=== PATIENT | female | born 1980 | race Caucasian/White ===

== ENCOUNTER 2017-06-22 03:02 | Emergency (ER) | payer SELFPAY ==
[~2017-06-22] VITALS: Ht 172.7 cm; Wt 63.5 kg
[~2017-06-22 03:02] MED LIST: ANTIVERT25 MG PO; AZITHROMYCIN250 MG PO; BACTRIM DS 8001 TA1 PO; FEOSOL45 MG PO; IMITREX50 MG PO; KEFLEX500 MG PO; MEDROL DOSEPAK4 MG PO; MIRALAX POWDER17 G1 PO; PREDNICOT20 MG PO; PREVACID SOLUTA30 MG PO; VALTREX1 GM PO; VALTREX500 MG PO; ZOFRAN ODT4 MG SL; Zofran4 MG PO
[2017-06-22 03:48] LABS: BILIRUBIN NEGATIVE (NEGATIVE); BLOOD TRACE-INTACT (NEGATIVE); CLARITY CLEAR (CLEAR); COLOR YELLOW (YELLOW); GLUCOSE NEGATIVE (NEGATIVE); KETONE TRACE (NEGATIVE); LEUKO ESTERASE 1+ (NEGATIVE); NITRITE NEGATIVE (NEGATIVE); PH 6.5 (5.0-9.0); SPECIFIC GRAVITY <= 1.005 (1.005-1.030); UROBILINOGEN 0.2 E.U./dl (0.2-1.0)
[2017-06-22 03:52] LABS: BASO # 0.1 10*3/uL (0.0-0.1); BASO % 0.9 % (0.0-1.0); EOS # 0.2 10*3/uL (0.0-0.4); EOS % 3.3 % (1.0-4.0); HEMATOCRIT 33.3 % (37.0-47.0); HEMOGLOBIN 11.6 g/dl (12.0-16.0); LYMPH # 2.5 10*3/uL (1.3-4.4); LYMPH % 39.9 % (27.0-41.0); MEAN CORPUSCULAR HGB 33.4 pg (27.0-31.0); MEAN CORPUSCULAR HGB CONC 34.8 g/dl (33.0-37.0); MEAN PLATELET VOLUME 10.2 fl (9.6-12.3); MONO # 0.6 10*3/uL (0.1-1.0); MONO % 8.8 % (3.0-9.0); NEUT % 46.8 % (47.0-73.0); PLATELET COUNT AUTOMATED 210 10*3/uL (130-400); RED BLOOD COUNT 3.47 10*6/uL (4.10-5.10); RED CELL DISTRI WIDTH 12.2 % (0-14.5); WHITE BLOOD COUNT 6.4 10*3/uL (4.8-10.8)
[2017-06-22 03:55] LABS: BACTERIA 2+
[2017-06-22 04:09] LABS: ALKALINE PHOSPHATASE 41 U/L (45-117); BUN 14 mg/dl (7-24); CHLORIDE 106 mmol/L (98-107); CREATININE 0.77 mg/dL (0.55-1.02); LIPASE 104 U/L (73-393); POTASSIUM 3.4 mmol/L (3.5-5.1); SGOT/AST 10 IU/L (3-35); SGPT/ALT 19 U/L (12-78); SODIUM 140 mmol/L (136-145)
[2017-06-22 04:23] LABS: BETA-HCG, QUANT < 1.0 mIU/mL (1-3)
[2017-06-22 05:22] VITALS: BP 123/75
[2017-06-22] MEDS ORDERED: ZOFRAN ODT4 MG SL (06:21)
[2017-06-22] MEDS ORDERED: NORCO 5-325 TA1 EACH PO (06:22)
== END 2017-06-22 06:45 | disposition home or self-care (01) ==
LOC: ED 03:02
PROVIDERS: Emergency Medicine Emergency Medical Services
DX: N83.201 Unspecified ovarian cyst, right side (principal); R10.2 Pelvic and perineal pain; Z79.899 Other long term (current) drug therapy; Z91.041 Radiographic dye allergy status

== ENCOUNTER → 2017-10-16 | Outpatient (CLI) | payer OTHER ==
[~2017-10-16] MED LIST changes: +NORCO 5-325 TA1 EACH PO
[2017-10-16 18:16] LABS: HEMATOCRIT 37.9 % (37.0-47.0); HEMOGLOBIN 12.6 g/dl (12.0-16.0); MEAN CELL VOLUME 99.2 fl (81.0-99.0); MEAN CORPUSCULAR HGB CONC 33.2 g/dl (33.0-37.0); MEAN PLATELET VOLUME 10.4 fl (9.6-12.3); RED BLOOD COUNT 3.82 10*6/uL (4.10-5.10); RED CELL DISTRI WIDTH 12.6 % (0-14.5); WHITE BLOOD COUNT 7.7 10*3/uL (4.8-10.8)
[2017-10-16 18:32] LABS: ALBUMIN 4.7 gm/dl (3.1-4.5); ALKALINE PHOSPHATASE 33 U/L (45-117); BUN 16 mg/dl (7-24); CHLORIDE 105 mmol/L (98-107); CHOLESTEROL 224 mg/dL (<200); CREATININE 0.73 mg/dL (0.55-1.02); HDL CHOLESTEROL 70 mg/dl (40-60); LDL CHOLESTEROL 143 mg/dL (9-159); POTASSIUM 4.1 mmol/L (3.5-5.1); SGOT/AST 21 IU/L (3-35); SGPT/ALT 22 U/L (12-78); SODIUM 139 mmol/L (136-145); TOTAL PROTEIN 7.9 gm/dL (6.4-8.2); TRIGLYCERIDES 57 mg/dl (<150); VLDL CHOLESTEROL 11 mg/dL (6-40)
[2017-10-17 08:11] LABS: RHEUMATOID ARTHRITIS FACTOR <10.0 IU/mL (0.0-13.9)
== END | disposition home or self-care (01) ==
LOC: LAB 17:53
PROVIDERS: Family Medicine
DX: Z13.220 Encounter for screening for lipoid disorders (principal); M25.50 Pain in unspecified joint; M79.1 Myalgia; R51 Headache; E55.9 Vitamin D deficiency, unspecified; L23.7 Allergic contact dermatitis due to plants, except food

== ENCOUNTER → 2017-11-01 | Outpatient (CLI) | payer OTHER | END | disposition home or self-care (01) | LOC: LAB 16:41 | DX: E74.9 Disorder of carbohydrate metabolism, unspecified (principal) ==

== ENCOUNTER → 2017-11-21 | Outpatient (CLI) | payer OTHER | END | disposition home or self-care (01) | LOC: MAMMO 09:00 | DX: N63.20 Unspecified lump in the left breast, unspecified quadrant (principal) ==

== ENCOUNTER → 2018-06-04 | Outpatient (CLI) | payer OTHER | END | disposition home or self-care (01) | LOC: RAD 14:29 | DX: M54.2 Cervicalgia (principal) ==

== ENCOUNTER → 2018-06-24 | Outpatient (CLI) | payer OTHER | END | disposition home or self-care (01) | LOC: MRI 09:00 | DX: M25.78 Osteophyte, vertebrae (principal); M50.20 Other cervical disc displacement, unspecified cervical region; M11.28 Other chondrocalcinosis, vertebrae; R20.0 Anesthesia of skin; R20.2 Paresthesia of skin; R53.1 Weakness ==

== ENCOUNTER → 2018-07-02 | Outpatient (CLI) | payer OTHER | END | disposition home or self-care (01) | LOC: US 17:00 | DX: N83.202 Unspecified ovarian cyst, left side (principal) ==

== ENCOUNTER → 2018-08-05 | Outpatient (CLI) | payer OTHER | END | disposition home or self-care (01) | LOC: US 07-29 11:00 | DX: N83.202 Unspecified ovarian cyst, left side (principal) ==

== ENCOUNTER → 2018-11-19 | Outpatient (CLI) | payer OTHER ==
[2018-11-19 18:49] LABS: HEMOGLOBIN 12.1 g/dl (12.0-16.0); MEAN CELL VOLUME 98.6 fl (81.0-99.0); MEAN CORPUSCULAR HGB 34.1 pg (27.0-31.0); MEAN CORPUSCULAR HGB CONC 34.6 g/dl (33.0-37.0); MEAN PLATELET VOLUME 10.3 fl (9.6-12.3); RED BLOOD COUNT 3.55 10*6/uL (4.10-5.10); RED CELL DISTRI WIDTH 11.6 % (0-14.5); WHITE BLOOD COUNT 8.8 10*3/uL (4.8-10.8)
[2018-11-19 19:30] LABS: ALBUMIN 3.7 gm/dl (3.1-4.5); ALKALINE PHOSPHATASE 47 U/L (45-117); BUN 12 mg/dl (7-24); CHLORIDE 109 mmol/L (98-107); CREATININE 0.93 mg/dL (0.55-1.02); POTASSIUM 3.4 mmol/L (3.5-5.1); SGOT/AST 9 IU/L (3-35); SGPT/ALT 17 U/L (12-78); SODIUM 142 mmol/L (136-145); TOTAL PROTEIN 6.9 gm/dL (6.4-8.2)
[2018-11-19 19:39] LABS: VITAMIN D, 25-HYDROXY 33.5 ng/mL (30-100)
== END | disposition home or self-care (01) ==
LOC: LAB 18:13
PROVIDERS: Family Medicine
DX: M25.531 Pain in right wrist (principal); M77.8 Other enthesopathies, not elsewhere classified; F41.1 Generalized anxiety disorder; E74.00 Glycogen storage disease, unspecified; R53.83 Other fatigue

== ENCOUNTER → 2018-12-25 | Outpatient (CLI) | payer OTHER | END | disposition home or self-care (01) | LOC: LAB 15:01 | PROVIDERS: Family Medicine | DX: M25.50 Pain in unspecified joint (principal) ==

== ENCOUNTER → 2019-03-20 | Outpatient (CLI) | payer OTHER | END | disposition home or self-care (01) | LOC: LAB 12:46 | PROVIDERS: Family Medicine | DX: M25.50 Pain in unspecified joint (principal) ==

== ENCOUNTER → 2019-07-18 | Outpatient (CLI) | payer MEDICAID ==
[2019-07-18 14:42] LABS: HEMATOCRIT 36.5 % (37.0-47.0); HEMOGLOBIN 12.4 g/dl (12.0-16.0); MEAN CELL VOLUME 98.9 fl (81.0-99.0); MEAN CORPUSCULAR HGB 33.6 pg (27.0-31.0); MEAN PLATELET VOLUME 10.1 fl (9.6-12.3); RED BLOOD COUNT 3.69 10*6/uL (4.10-5.10); WHITE BLOOD COUNT 5.1 10*3/uL (4.8-10.8)
[2019-07-18 14:59] LABS: ALBUMIN 4.2 gm/dl (3.1-4.5); ALKALINE PHOSPHATASE 32 U/L (45-117); BUN 13 mg/dl (7-24); CHLORIDE 106 mmol/L (98-107); CHOLESTEROL 208 mg/dL (<200); CREATININE 0.86 mg/dL (0.55-1.02); HDL CHOLESTEROL 62 mg/dl (40-60); LDL CHOLESTEROL 129 mg/dL (9-159); POTASSIUM 3.9 mmol/L (3.5-5.1); SGOT/AST 8 IU/L (3-35); SGPT/ALT 18 U/L (12-78); SODIUM 136 mmol/L (136-145); TOTAL PROTEIN 7.4 gm/dL (6.4-8.2); TRIGLYCERIDES 85 mg/dl (<150); VLDL CHOLESTEROL 17 mg/dL (6-40)
[2019-07-21 04:05] LABS: ALTERNARIA ALTERNATA, IGE <0.10 kU/L (Class 0); AMERICAN ELM, IGE <0.10 kU/L (Class 0); ASPERGILLUS FUMIGATU, IGE <0.10 kU/L (Class 0); BERMUDA GRASS, IGE <0.10 kU/L (Class 0); BIRCH, COMMON SILVER IGE <0.10 kU/L (Class 0); CLADOSPORIUM HERBARU, IGE <0.10 kU/L (Class 0); CORN, IGE <0.10 kU/L (Class 0); D FARINAE MITE <0.10 kU/L (Class 0); D PTERONYSSINUS <0.10 kU/L (Class 0); DOG DANDER, IGE <0.10 kU/L (Class 0); IMMUNOGLOBULIN IgE <2 IU/mL (6-495); MAPLE LEAF SYCAMORE, IGE <0.10 kU/L (Class 0); MAPLE/BOX ELDER, IGE <0.10 kU/L (Class 0); MILK (COW), IGE <0.10 kU/L (Class 0); MOUSE URINE IGE <0.10 kU/L (Class 0); PEANUT, IGE <0.10 kU/L (Class 0); PENICILLIUM CHRYSOGENUM, IGE <0.10 kU/L (Class 0); ROUGH PIGWEED, IGE <0.10 kU/L (Class 0); SHEEP SORREL (DOCK), IGE <0.10 kU/L (Class 0); SHORT RAGWEED, IGE <0.10 kU/L (Class 0); SOYBEAN, IGE <0.10 kU/L (Class 0); TIMOTHY, IGE <0.10 kU/L (Class 0); WALNUT TREE, IGE <0.10 kU/L (Class 0); WHEAT, IGE <0.10 kU/L (Class 0); WHITE ASH, IGE <0.10 kU/L (Class 0); WHITE MULBERRY, IGE <0.10 kU/L (Class 0); WHITE OAK, IGE <0.10 kU/L (Class 0)
== END | disposition home or self-care (01) ==
LOC: LAB 14:13
PROVIDERS: Nurse Practitioner Family
DX: J31.0 Chronic rhinitis (principal); E55.9 Vitamin D deficiency, unspecified; H93.19 Tinnitus, unspecified ear; R53.83 Other fatigue; R20.0 Anesthesia of skin

== ENCOUNTER → 2019-10-01 | Outpatient (CLI) | payer OTHER | END | disposition home or self-care (01) | LOC: MRI 00:33 | DX: G35 Multiple sclerosis (principal) ==

== ENCOUNTER → 2019-10-14 | Outpatient (CLI) | payer OTHER ==
[2019-10-14 14:22] LABS: ALBUMIN 3.8 gm/dl (3.1-4.5); ALKALINE PHOSPHATASE 34 U/L (45-117); BILIRUBIN, DIRECT 0.2 mg/dL (0.0-0.2); SGOT/AST 12 IU/L (3-35); SGPT/ALT 25 U/L (12-78)
== END | disposition home or self-care (01) ==
LOC: LAB 13:27
PROVIDERS: Psychiatry & Neurology Neurology
DX: R90.82 White matter disease, unspecified (principal)

== ENCOUNTER → 2020-01-13 | Outpatient (CLI) | payer OTHER | END | disposition home or self-care (01) | LOC: US 14:17 | DX: N85.8 Other specified noninflammatory disorders of uterus (principal) ==

== ENCOUNTER → 2020-01-23 | Outpatient (CLI) | payer OTHER | END | disposition home or self-care (01) | LOC: COVID19 00:24 | PROVIDERS: ATTEND Family Medicine | DX: Z20.828 Contact with and (suspected) exposure to other viral communicable diseases (principal) ==

== ENCOUNTER → 2021-03-22 | Outpatient (CLI) | payer OTHER ==
[2021-03-22 12:05] LABS: HEMATOCRIT 38.8 % (37.0-47.0); MEAN CELL VOLUME 99.2 fl (81.0-99.0); MEAN CORPUSCULAR HGB 31.7 pg (27.0-31.0); MEAN PLATELET VOLUME 10.2 fl (9.6-12.3); RED BLOOD COUNT 3.91 10*6/uL (4.10-5.10); RED CELL DISTRI WIDTH 13.9 % (0-14.5)
[2021-03-22 12:36] LABS: ALBUMIN 3.6 gm/dl (3.1-4.5); ALKALINE PHOSPHATASE 37 U/L (45-117); BUN 10 mg/dl (7-24); CHLORIDE 109 mmol/L (98-107); CREATININE 0.69 mg/dL (0.55-1.02); POTASSIUM 4.1 mmol/L (3.5-5.1); SGOT/AST 12 IU/L (3-35); SGPT/ALT 22 U/L (12-78); SODIUM 139 mmol/L (136-145)
== END | disposition home or self-care (01) ==
LOC: LAB 11:16
PROVIDERS: ATTEND Family Medicine
DX: R07.89 Other chest pain (principal); R05.9 Cough, unspecified; R53.83 Other fatigue

== ENCOUNTER → 2021-05-16 | Outpatient (CLI) | payer OTHER | END | disposition home or self-care (01) | LOC: US 09:30 | PROVIDERS: ATTEND Family Medicine | DX: R10.812 Left upper quadrant abdominal tenderness (principal) ==

== ENCOUNTER → 2022-04-26 | Outpatient (CLI) | payer OTHER | END | disposition home or self-care (01) | LOC: RAD 17:02 | PROVIDERS: ATTEND Family Medicine | DX: S69.92XA Unspecified injury of left wrist, hand and finger(s), initial encounter (principal); X58.XXXA Exposure to other specified factors, initial encounter; Y93.89 Activity, other specified; Y92.89 Other specified places as the place of occurrence of the external cause; Y99.8 Other external cause status ==

== ENCOUNTER → 2022-09-28 | Outpatient (CLI) | payer OTHER ==
[2022-09-28 16:07] LABS: MEAN CELL VOLUME 97.7 fl (81.0-99.0); MEAN CORPUSCULAR HGB 33.2 pg (27.0-31.0); MEAN CORPUSCULAR HGB CONC 33.9 g/dl (33.0-37.0); RED BLOOD COUNT 3.89 10*6/uL (4.10-5.10); WHITE BLOOD COUNT 9.4 10*3/uL (4.8-10.8)
[2022-09-28 16:56] LABS: ALKALINE PHOSPHATASE 33 U/L (46-116); BUN 14 mg/dl (9-23); CHLORIDE 106 mmol/L (98-107); CHOLESTEROL 270 mg/dL (<200); FREE T4 0.96 ng/dl (0.89-1.76); LDL CHOLESTEROL 197 mg/dL (9-159); POTASSIUM 4.1 mmol/L (3.4-5.1); SGPT/ALT 8 U/L (10-49); THYROID STIM HORMONE (HS) 1.564 uIU/ml (0.550-4.780); TRIGLYCERIDES 81 mg/dl (<150)
== END | disposition home or self-care (01) ==
LOC: LAB 15:43
PROVIDERS: ATTEND Family Medicine
DX: R25.1 Tremor, unspecified (principal); R51.9 Headache, unspecified; R53.83 Other fatigue; R00.2 Palpitations

== ENCOUNTER → 2023-03-06 | Outpatient (CLI) | payer OTHER ==
[2023-03-06 13:45] LABS: HEMATOCRIT 34.7 % (37.0-47.0); MEAN CELL VOLUME 97.2 fl (81.0-99.0); MEAN CORPUSCULAR HGB 33.1 pg (27.0-31.0); RED BLOOD COUNT 3.57 10*6/uL (4.10-5.10); RED CELL DISTRI WIDTH 12.8 % (0-14.5); WHITE BLOOD COUNT 4.9 10*3/uL (4.8-10.8)
[2023-03-06 14:13] LABS: ALKALINE PHOSPHATASE 33 U/L (46-116); BUN 10 mg/dl (9-23); CHLORIDE 108 mmol/L (98-107); CHOLESTEROL 231 mg/dL (<200); FREE T4 0.86 ng/dl (0.89-1.76); LDL CHOLESTEROL 162 mg/dL (9-159); POTASSIUM 3.9 mmol/L (3.4-5.1); SGPT/ALT 8 U/L (10-49); TOTAL PROTEIN 6.5 gm/dL (6.0-8.0); TRIGLYCERIDES 82 mg/dl (<150)
[2023-03-06 14:14] LABS: VITAMIN D, 25-HYDROXY 55.5 ng/mL (30-100)
== END | disposition home or self-care (01) ==
LOC: LAB 13:25
PROVIDERS: ATTEND Family Medicine
DX: E78.00 Pure hypercholesterolemia, unspecified (principal); E55.9 Vitamin D deficiency, unspecified; R53.83 Other fatigue; G62.9 Polyneuropathy, unspecified

== ENCOUNTER 2023-03-27 12:36 | Emergency (ER) | payer OTHER ==
[~2023-03-27] VITALS: Ht 162.5 cm; Wt 63.5 kg
[2023-03-27 12:44] VITALS: BP 112/42
[2023-03-27] MEDS ORDERED: SENNA8.6 MG PO (16:02)
[2023-03-27] MEDS ORDERED: HYDROCODONE-AC1 EAC1 PO (16:02)
== END 2023-03-27 16:20 | disposition home or self-care (01) ==
LOC: ED 12:36
DX: S32.10XA Unspecified fracture of sacrum, initial encounter for closed fracture (principal); M79.642 Pain in left hand; G43.909 Migraine, unspecified, not intractable, without status migrainosus; J45.909 Unspecified asthma, uncomplicated; Z91.041 Radiographic dye allergy status; Z98.890 Other specified postprocedural states; W01.0XXA Fall on same level from slipping, tripping and stumbling without subsequent striking against object, initial encounter; Y93.89 Activity, other specified; Y92.89 Other specified places as the place of occurrence of the external cause; Y99.8 Other external cause status

== ENCOUNTER → 2023-04-18 | Outpatient (CLI) | payer OTHER ==
[~2023-04-18] MED LIST changes: +HYDROCODONE-AC1 EAC1 PO; +SENNA8.6 MG PO
== END | disposition home or self-care (01) ==
LOC: RAD 14:55
PROVIDERS: ATTEND Family Medicine
DX: S69.92XD Unspecified injury of left wrist, hand and finger(s), subsequent encounter (principal); M79.642 Pain in left hand; X58.XXXD Exposure to other specified factors, subsequent encounter

== ENCOUNTER → 2023-06-13 | Outpatient (CLI) | payer OTHER ==
[2023-06-13 17:07] LABS: ALKALINE PHOSPHATASE 27 U/L (46-116); BUN 11 mg/dl (9-23); CHLORIDE 107 mmol/L (98-107); CHOLESTEROL 214 mg/dL (<200); CPK 53 U/L (34-171); LDL CHOLESTEROL 149 mg/dL (9-159); POTASSIUM 3.7 mmol/L (3.4-5.1); SGPT/ALT 7 U/L (5-49); TOTAL PROTEIN 7.1 gm/dL (6.0-8.0); TRIGLYCERIDES 99 mg/dl (<150)
== END | disposition home or self-care (01) ==
LOC: LAB 16:29
PROVIDERS: ATTEND Family Medicine
DX: E78.00 Pure hypercholesterolemia, unspecified (principal); M19.90 Unspecified osteoarthritis, unspecified site

== ENCOUNTER → 2024-04-02 | Outpatient (CLI) | payer OTHER ==
[2024-04-02 14:26] LABS: HEMATOCRIT 35.2 % (37.0-47.0); MEAN CELL VOLUME 97.8 fl (81.0-99.0); MEAN CORPUSCULAR HGB 33.3 pg (27.0-31.0); MEAN CORPUSCULAR HGB CONC 34.1 g/dl (33.0-37.0); MEAN PLATELET VOLUME 10.1 fl (9.6-12.3); RED BLOOD COUNT 3.6 10*6/uL (4.10-5.10); RED CELL DISTRI WIDTH 13.5 % (0-14.5); WHITE BLOOD COUNT 6.7 10*3/uL (4.8-10.8)
[2024-04-02 14:52] LABS: ALKALINE PHOSPHATASE 38 U/L (46-116); BUN 11 mg/dl (9-23); CHLORIDE 106 mmol/L (98-107); CHOLESTEROL 266 mg/dL (<200); FREE T4 1.12 ng/dl (0.89-1.76); LDL CHOLESTEROL 178 mg/dL (9-159); POTASSIUM 4.2 mmol/L (3.4-5.1); SGPT/ALT 10 U/L (5-49); TOTAL PROTEIN 6.6 gm/dL (6.0-8.0); TRIGLYCERIDES 131 mg/dl (<150)
== END | disposition home or self-care (01) ==
LOC: LAB 13:32
PROVIDERS: ATTEND Family Medicine
DX: R06.02 Shortness of breath (principal); E78.00 Pure hypercholesterolemia, unspecified; R07.89 Other chest pain

== ENCOUNTER → 2024-12-29 | Outpatient (CLI) | payer BC | END | disposition home or self-care (01) | LOC: MAMMO 07:30 | PROVIDERS: ATTEND Nurse Practitioner Women's Health | DX: Z12.31 Encounter for screening mammogram for malignant neoplasm of breast (principal); R92.343 Mammographic extreme density, bilateral breasts; R10.2 Pelvic and perineal pain ==

== ENCOUNTER → 2025-01-13 | Outpatient (CLI) | payer BC | LOC: RAD 12:34 | PROVIDERS: ATTEND Family Medicine | DX: M43.8X2 Other specified deforming dorsopathies, cervical region (principal); M48.02 Spinal stenosis, cervical region; M54.2 Cervicalgia; M25.512 Pain in left shoulder ==

== ENCOUNTER → 2025-01-28 | Outpatient (CLI) | payer BC | END | disposition home or self-care (01) | LOC: MRI 01-23 11:00 | PROVIDERS: ATTEND Family Medicine | DX: M50.323 Other cervical disc degeneration at C6-C7 level (principal); M48.03 Spinal stenosis, cervicothoracic region ==

== ENCOUNTER → 2025-02-16 | Outpatient (CLI) | payer BC | END | disposition home or self-care (01) | LOC: RAD 08:56 | PROVIDERS: ATTEND Family Medicine | DX: R07.9 Chest pain, unspecified (principal) ==

== ENCOUNTER → 2025-02-26 | Outpatient (CLI) | payer BC | END | disposition home or self-care (01) | LOC: RAD 11:48 | PROVIDERS: ATTEND Family Medicine | DX: M25.512 Pain in left shoulder (principal) ==